=== PATIENT | female | born 1930 | race Caucasian/White ===

== ENCOUNTER 2018-03-03 19:12 | Inpatient (IN) | payer MEDICARE, MEDICAID ==
[~2018-03-03] VITALS: Ht 154.9 cm; Wt 72.6 kg
[2018-03-03] MEDS ORDERED: MAGN400O6 PO (22:00)
[2018-03-03] MEDS ORDERED: LORA-258 PO (22:00)
[2018-03-03] MEDS ORDERED: ZOLP5TAB8 PO (22:00)
[2018-03-03] MEDS ORDERED: ACET-2154 PO (22:00)
[2018-03-03] MEDS ORDERED: RALO60TA PO (22:00)
[2018-03-03] MEDS ORDERED: PRED1DRO LEFTEYE (22:00)
[2018-03-03] MEDS ORDERED: ASPI-612 PO (22:00)
[2018-03-03] MEDS ORDERED: GABA-532 PO (22:00)
[2018-03-03] MEDS ORDERED: CLON0.1T PO (22:00)
[2018-03-03] MEDS ORDERED: MAGN400C PO (22:00)
[2018-03-03] MEDS ORDERED: HYDR-3326 PO (22:00)
[2018-03-03] MEDS ORDERED: DOCU-141 PO (22:00)
[2018-03-03] MEDS ORDERED: CELE200C PO (22:00)
[2018-03-03] MEDS ORDERED: ATOR20TA PO (22:00)
[2018-03-03 22:09] VITALS: BP 145/69
[2018-03-03] MEDS ORDERED: BLOO-1672 MC (22:29)
[2018-03-03] MEDS ORDERED: INSU100V28 SUBCUT (22:33)
[2018-03-03] MEDS ORDERED: PRED5DRO16 LEFTEYE (22:36)
[2018-03-03] MEDS ORDERED: BISA10SU8 RC (22:40)
[2018-03-03] MEDS ORDERED: [UNRECOGNIZED DRUG - CODE] OP (22:45)
[2018-03-03] MEDS ORDERED: ZOLPIDEM 5 MG TABLET PO PRN (23:00)
[2018-03-03] MEDS ORDERED: DEXTROSE 50% 50 ML DISP.SYRIN IV PRN (23:00)
[2018-03-03] MEDS ORDERED: Z GUARD REMEDY PASTE 57 GM TUBE TOP PRN (23:00)
[2018-03-03] MEDS ORDERED: ONDANSETRON 4 MG/2 ML VIAL IV PRN (23:00)
[2018-03-03] MEDS ORDERED: MAGNESIUM HYDROXIDE 30 ML LIQUID UDC PO PRN (23:00)
--- NOTE | 2018-03-04 04:53 | NUR ---
received from [facility] an 87 year old female S/P right total knee arthroplasty. RLE with immobilizer on at all times with dressing clean dry and intact. aaox4 speaks Maltese, understand little bit Syriac. Fall precautions maintained. OOB to the BR with quad cane, ambulates with supervision. voiding without difficulty. skin intact. VSS. Hx of dementia, leukemia, hyperthyroidism, osteoarthritis.kept comfortable. fall precautions maintained.
[2018-03-04 05:47] VITALS: BP 156/59
[2018-03-04] MEDS: PANTOPRAZOLE SODIUM 40 MG TABLET.DR PO SCH (06:01)
[2018-03-04] MEDS: BLOOD SUGAR DIAGNOSTIC 1 EACH STRIP VI SCH ×4 (06:34→21:31)
--- NOTE | 2018-03-04 07:46 | NUR ---
SBAR report received, board updated. Pt received sleeping in bed. Bed in locked and lowest position with side rails up x2. No acute distress. Call light within reach. Will continue to monitor and follow up.
[2018-03-04] MEDS: MELOXICAM 7.5 MG TABLET PO SCH (08:25)
[2018-03-04] MEDS: HYDROCODONE/APAP 5-325MG TABLET PO PRN ×3 (08:26→21:12)
[2018-03-04] MEDS: INSULIN REGULAR, HUMAN 300 UNIT/3 ML VIAL SQ PRN ×4 (08:38→21:29)
--- NOTE | 2018-03-04 15:18 | NUR ---
Pt compliant with all routinely scheduled medication administration this morning. VSS. BS prior to lunch of 200 covered with 3 units. All safety and comfort measures implemented. Pt cooperative with therapy evaluations. Call light and personal belongings placed within reach. Will continue to monitor.
[2018-03-04] MEDS ORDERED: ONDANSETRON HCL 4 MG TABLET PO PRN (18:00)
--- NOTE | 2018-03-04 18:42 | NUR ---
Pt assisted to bathroom for voiding, clear and yellow urine. Pt able to ambulate with walker back to bed. VSS. Pt repositioned for comfort. Orders confirmed to have immobilizer remain in place at all times except when exercising, showering, and using CPM. Surgeon specified to have original dressing remain and only to be reinforced PRN. F/U appointment scheduled for 03/11 at 1500 and Xray 03/10 to check for progressive healing. All safety and comfort needs met. Ice pack in place. Call light and personal items placed within reach. Will continue to monitor and endorse to on coming cannon fire direction specialist.
[2018-03-04 20:00] VITALS: BP 144/47
[2018-03-04] MEDS ORDERED: LORAZEPAM 0.5 MG TABLET PO PRN (20:00)
[2018-03-04] MEDS ORDERED: HYDROCODONE/APAP 5-325MG TABLET PO PRN (20:00)
[2018-03-04] MEDS ORDERED: BISACODYL 10 MG SUPP.RECT RC PRN (20:00)
--- NOTE | 2018-03-04 20:05 | NUR ---
Patient received in bed. AAO X4. Able to make needs known. No sign of acute distress or SOB was noted. On room air with O2 sat 92%. Patient ambulated with assist and using walker to the bathroom. And after that transferred to her bed. Knee immobilizer and ice bag in place. All safety measures maintained. Bed is on low position, brake and alarm are on. Call light and personal belongings within reach. Continue to monitor.
[2018-03-04] MEDS ORDERED: prednisoLONE ACET 1% OPHT DROP 5 ML BOTTLE LEFTEYE SCH (21:00)
[2018-03-04] MEDS: DOCUSATE SODIUM 100 MG CAPSULE PO SCH (21:11)
[2018-03-04] MEDS: MAGNESIUM OXIDE 400 MG TABLET PO SCH (22:11)
[2018-03-04] MEDS: ATORVASTATIN 20 MG TABLET PO SCH (22:11)
[2018-03-04] MEDS ORDERED: VALSARTAN 160 MG TABLET PO ONE (22:15)
--- NOTE | 2018-03-04 22:50 | NUR ---
Dr. Dorsey ordered Diovan 160 mg Stat. The order was entered on the computer. Pharmacy contacted. The medication was given as ordered. Continue to monitor.
[2018-03-05] MEDS: HYDROCODONE/APAP 5-325MG TABLET PO PRN ×5 (01:22→22:42)
--- NOTE | 2018-03-05 05:15 | NUR ---
End of shift note, Patient remained stable throughout the shift. No acute distress or SOB was noted. Pain assessed and reassessed after pain medication. All medication given as ordered. BS was checked at 2100 was 140, 2 units insulin given per sliding scale. All needs attended promptly. Safety measures maintained. Keep her clean and comfortable. Bed in low position, alarm and brake on. Call light and personal belongings within reach. Continue to monitor and will endorse to day shift nurse.
[2018-03-05] MEDS: PANTOPRAZOLE SODIUM 40 MG TABLET.DR PO SCH (06:36)
[2018-03-05] MEDS: BLOOD SUGAR DIAGNOSTIC 1 EACH STRIP VI SCH ×4 (06:39→20:52)
[2018-03-05 07:06] LABS: BASOPHILS % (AUTO) 0.5 % (0.0-2.0); EOSINOPHILS # (AUTO) 0.3 K/uL (0.0-0.7); EOSINOPHILS % (AUTO) 4.2 % (0.0-7.0); HEMATOCRIT 27.6 % (31.2-41.9); HEMOGLOBIN 9.6 g/dL (10.9-14.3); LYMPHOCYTES # (AUTO) 1.1 K/uL (20.0-40.0); LYMPHOCYTES % (AUTO) 14.2 % (20.5-51.5); MEAN CORPUSCULAR HGB CONC 35 g/dL (32.3-35.6); MEAN CORPUSCULAR VOLUME 92.1 fL (75.5-95.3); MONOCYTES # (AUTO) 0.7 K/uL (2.0-10.0); MONOCYTES % (AUTO) 9.6 % (0.0-11.0); NEUTROPHILS # (AUTO) 5.6 K/uL (1.8-8.9); NEUTROPHILS % (AUTO) 71.5 % (38.5-71.5); PLATELET COUNT (AUTO) 241 K/uL (179-408); WHITE BLOOD COUNT (AUTO) 7.8 K/uL (3.8-11.8)
[2018-03-05 07:36] VITALS: BP 149/56
[2018-03-05 07:39] LABS: IRON, SERUM 13 ug/dL (50-175)
--- NOTE | 2018-03-05 07:50 | NUR ---
Received patient, asleep. Non-labored breathing. Not in apparent distress. Dressing intact, from original dressing. According to PM RN dressing not be changed since orthopedic surgeon prefers dressing to be changed by him. Will continue to monitor.
[2018-03-05 07:58] LABS: ALANINE AMINOTRANSFERASE 29 U/L (14-59); ALKALINE PHOSPHATASE 63 U/L (50-136); ASPARTATE AMINOTRANSFERASE 31 U/L (15-37); BILIRUBIN,TOTAL 0.6 mg/dL (0.2-1.0); CARBON DIOXIDE 29 mmol/L (21-32); CHLORIDE 99 mmol/L (98-107); CHOLESTEROL 97 mg/dL (<200); CREATININE 0.9 mg/dL (0.6-1.3); GLUCOSE 124 mg/dL (74-106); HDL CHOLESTEROL 37 mg/dL (40-60); PHOSPHOROUS 3.1 mg/dL (2.5-4.9); POTASSIUM 4.5 mmol/L (3.5-5.1); TOTAL PROTEIN, SERUM 5.5 g/dL (6.4-8.2); TRIGLYCERIDES 87 MG/DL (30-150); UREA NITROGEN, BLOOD 29 mg/dL (7-18)
[2018-03-05 08:00] VITALS: BP 146/69
[2018-03-05] MEDS: VALSARTAN 80 MG TABLET PO SCH ×2 (08:46→20:54)
[2018-03-05] MEDS: GABAPENTIN 100 MG CAPSULE PO SCH (08:47)
[2018-03-05] MEDS: ASPIRIN EC 325 MG TABLET.DR PO SCH (08:47)
[2018-03-05] MEDS: MELOXICAM 7.5 MG TABLET PO SCH (08:47)
[2018-03-05 08:58] LABS: THYROID STIMULATING HORMONE 3.934 mIU/mL (0.358-3.740)
[2018-03-05] MEDS ORDERED: RALOXIFENE HCL 60 MG PO SCH (09:00)
[2018-03-05] MEDS ORDERED: VALSARTAN 160 MG TABLET PO SCH (09:00)
[2018-03-05] MEDS: prednisoLONE ACET 1% OPHT DROP 5 ML BOTTLE LEFTEYE SCH (09:51)
[2018-03-05] MEDS: INSULIN REGULAR, HUMAN 300 UNIT/3 ML VIAL SQ PRN ×3 (12:07→20:59)
--- NOTE | 2018-03-05 13:00 | NUR ---
Seen and examined by Dr. Nava. Seen rashes on lower leg. Ordered hydrocortisone 1% cream TID
[2018-03-05] MEDS: HYDROCORTISONE 1% CREAM 30 GM TUBE TP SCH (16:54)
[2018-03-05 16:59] VITALS: BP 139/59
[2018-03-05 20:00] VITALS: BP 133/74
[2018-03-05] MEDS: MAGNESIUM OXIDE 400 MG TABLET PO SCH (20:54)
[2018-03-05] MEDS: DOCUSATE SODIUM 100 MG CAPSULE PO SCH (20:54)
[2018-03-05] MEDS: ATORVASTATIN 20 MG TABLET PO SCH (20:54)
--- NOTE | 2018-03-05 23:00 | NUR ---
Received pt at the beginning of shift resting in bed. Family at bedside. Norwegian speaking, able to make needs known. Assisted to the bathroom using walker with assist. No acute distress noted. C/o pain on the right knee, requested Varina, med given as ordered. Safety measures maintained. Bed alarm on. Call light and personal belongings within reach. Will continue to monitor.
[2018-03-06 06:00] VITALS: BP 154/84
[2018-03-06] MEDS: PANTOPRAZOLE SODIUM 40 MG TABLET.DR PO SCH (06:15)
[2018-03-06] MEDS: HYDROCODONE/APAP 5-325MG TABLET PO PRN ×4 (06:26→20:35)
[2018-03-06] MEDS: CLONIDINE HCL 0.1 MG TABLET PO PRN (06:26)
[2018-03-06] MEDS: BLOOD SUGAR DIAGNOSTIC 1 EACH STRIP VI SCH ×4 (06:33→20:22)
--- NOTE | 2018-03-06 06:43 | NUR ---
Skin assessment: no redness on sacrum area upon thorough assessment this morning. Pt turns and repositions independently and encouraged to do so. Will continue to monitor.
[2018-03-06] MEDS: ASPIRIN EC 325 MG TABLET.DR PO SCH (08:43)
[2018-03-06] MEDS: MELOXICAM 7.5 MG TABLET PO SCH (08:43)
[2018-03-06] MEDS: GABAPENTIN 100 MG CAPSULE PO SCH (08:43)
[2018-03-06] MEDS: VALSARTAN 80 MG TABLET PO SCH ×2 (08:44→20:23)
[2018-03-06] MEDS: prednisoLONE ACET 1% OPHT DROP 5 ML BOTTLE LEFTEYE SCH (08:45)
[2018-03-06] MEDS: HYDROCORTISONE 1% CREAM 30 GM TUBE TP SCH ×3 (08:45→16:24)
--- NOTE | 2018-03-06 09:59 | NUR ---
Received patient in lying in bed. Continue on pain management with good effect. Continue applying ice pack for right knee pain. Continue on CMP PRN. SPO2 between 89-92. MD Nava notified. Applied oxygen at 2 LPM via nasal cannula. SPO2- 96% with oxygen. will continue monitor
[2018-03-06] MEDS: INSULIN REGULAR, HUMAN 300 UNIT/3 ML VIAL SQ PRN ×2 (12:01→20:30)
--- NOTE | 2018-03-06 13:18 | NUR ---
INTERDISCIPLINARY TEAM CONFERENCE
--- NOTE | 2018-03-06 18:34 | NUR ---
Patient continue PRN oxygen for low SPO2. latest 94% in room air. Continue on CPM and therapy for ambulation and unsteady gait. will continue monitor
--- NOTE | 2018-03-06 18:37 | NUR ---
Patient continue pain management prior to therapy with good effect. not in distress. Continue CPM therapy for wound healing and ambulation. will continue monitor
--- NOTE | 2018-03-06 19:55 | NUR ---
Received pt in bed, AAO x 4 appearing to be asleep but easily arousable to verbal stimuli and light touch. No acute distress noted. Verbally responsive and able to make needs known. Denies pain or discomfort at this time. All safety measures and fall precautions maintained. Call light and all personal belongings within reach. Will continue to monitor.
[2018-03-06 20:02] VITALS: BP 106/62
[2018-03-06] MEDS: MAGNESIUM OXIDE 400 MG TABLET PO SCH (20:22)
[2018-03-06] MEDS: ATORVASTATIN 20 MG TABLET PO SCH (20:23)
[2018-03-06] MEDS: DOCUSATE SODIUM 100 MG CAPSULE PO SCH (20:23)
[2018-03-07] MEDS: HYDROCODONE/APAP 5-325MG TABLET PO PRN ×4 (00:48→18:35)
[2018-03-07 05:04] VITALS: BP 131/63
[2018-03-07] MEDS: PANTOPRAZOLE SODIUM 40 MG TABLET.DR PO SCH (06:24)
[2018-03-07] MEDS: BLOOD SUGAR DIAGNOSTIC 1 EACH STRIP VI SCH ×4 (06:30→20:25)
[2018-03-07] MEDS: prednisoLONE ACET 1% OPHT DROP 5 ML BOTTLE LEFTEYE SCH (08:55)
[2018-03-07] MEDS: GABAPENTIN 100 MG CAPSULE PO SCH (08:55)
[2018-03-07] MEDS: VALSARTAN 80 MG TABLET PO SCH ×2 (08:56→20:24)
[2018-03-07] MEDS: ASPIRIN EC 325 MG TABLET.DR PO SCH (08:56)
[2018-03-07] MEDS: MELOXICAM 7.5 MG TABLET PO SCH (08:56)
[2018-03-07] MEDS: HYDROCORTISONE 1% CREAM 30 GM TUBE TP SCH ×3 (08:56→16:38)
--- NOTE | 2018-03-07 11:44 | NUR ---
CALLED HER SON REGARDING BRINGING IN THE EVISTA PER REQUEST OF PHARMACIST COOPER. HE SAYS HE WILL NOT BE BRINGING THE MEDICATION IN HIS MOM TOLD HIM SHE DOES NOT NEED IT AND WILL TAKE IT ONCE SHE COMES HOME
[2018-03-07] MEDS: INSULIN REGULAR, HUMAN 300 UNIT/3 ML VIAL SQ PRN ×2 (13:02→20:30)
--- NOTE | 2018-03-07 19:44 | NUR ---
Received pt in bed, AAO x 4. Knee immobilizer applied. No acute distress noted. Denies pain or discomfort at this time. All safety measures and fall precautions maintained. Call light and all personal belongings within reach. Addendum: 03/07/18 at 1946 by Jose Barkley RN Will continue to monitor.
[2018-03-07 19:59] VITALS: BP 131/64
[2018-03-07] MEDS: ATORVASTATIN 20 MG TABLET PO SCH (20:24)
[2018-03-07] MEDS: DOCUSATE SODIUM 100 MG CAPSULE PO SCH (20:24)
[2018-03-07] MEDS: MAGNESIUM OXIDE 400 MG TABLET PO SCH (20:24)
[2018-03-08] MEDS: HYDROCODONE/APAP 5-325MG TABLET PO PRN ×5 (01:58→21:17)
[2018-03-08 05:22] VITALS: BP 155/60
[2018-03-08] MEDS: PANTOPRAZOLE SODIUM 40 MG TABLET.DR PO SCH (06:21)
[2018-03-08] MEDS: BLOOD SUGAR DIAGNOSTIC 1 EACH STRIP VI SCH ×4 (06:32→21:23)
[2018-03-08 08:00] VITALS: BP 148/70
[2018-03-08] MEDS: MELOXICAM 7.5 MG TABLET PO SCH (08:04)
[2018-03-08] MEDS: GABAPENTIN 100 MG CAPSULE PO SCH (08:04)
[2018-03-08] MEDS: VALSARTAN 80 MG TABLET PO SCH ×2 (08:04→21:17)
[2018-03-08] MEDS: prednisoLONE ACET 1% OPHT DROP 5 ML BOTTLE LEFTEYE SCH (08:05)
[2018-03-08] MEDS: ASPIRIN EC 325 MG TABLET.DR PO SCH (08:05)
[2018-03-08] MEDS: HYDROCORTISONE 1% CREAM 30 GM TUBE TP SCH ×3 (08:05→17:01)
[2018-03-08] MEDS: INSULIN REGULAR, HUMAN 300 UNIT/3 ML VIAL SQ PRN ×3 (08:17→21:19)
[2018-03-08] MEDS: ACETAMINOPHEN 325 MG TABLET PO PRN (11:14)
--- NOTE | 2018-03-08 13:18 | NUR ---
INTERDISCIPLINARY TEAM CONFERENCE
--- NOTE | 2018-03-08 14:42 | NUR ---
SBAR report received this morning, board updated. Pt assessed reports pain managed through PRN medication following ambulation with walker to restroom, in addition to application of ice pack. Pt reports frequent diarrhea since yesterday evening, refusing breakfast. Pt insists on postponing PT until later this afternoon anticipating feeling better with more energy. Call light and personal belongings placed within reach. Will continue to monitor.
[2018-03-08 16:00] VITALS: BP 137/56
[2018-03-08 20:00] VITALS: BP 152/74
--- NOTE | 2018-03-08 20:20 | NUR ---
Patient received in bed. AAO X4. Able to make needs known. No sign of acute distress or SOB was noted. On room air with O2 sat 94%. Patient ambulated with assist and using walker to the bathroom. And after that transferred to her bed. Knee immobilizer and ice bag in place. All safety measures maintained. Bed is on low position, brake and alarm are on. Call light and personal belongings within reach. Continue to monitor.
[2018-03-08] MEDS: DOCUSATE SODIUM 100 MG CAPSULE PO SCH (21:00)
[2018-03-08] MEDS: MAGNESIUM OXIDE 400 MG TABLET PO SCH (21:18)
[2018-03-08] MEDS: ATORVASTATIN 20 MG TABLET PO SCH (21:18)
[2018-03-09] MEDS: HYDROCODONE/APAP 5-325MG TABLET PO PRN ×4 (01:16→18:54)
[2018-03-09] MEDS: PANTOPRAZOLE SODIUM 40 MG TABLET.DR PO SCH (06:20)
--- NOTE | 2018-03-09 06:34 | NUR ---
End of shift note, Patient remained stable throughout the shift. No acute distress or SOB was noted. Pain assessed and reassessed after pain medication. All medication given as ordered. BS was checked at 2100 was 132, 2 units insulin given per sliding scale, at the morning was 117. All needs attended promptly. Safety measures maintained. Keep her clean and comfortable. Bed in low position, alarm and brake on. Call light and personal belongings within reach. Continue to monitor and will endorse to day shift nurse.
[2018-03-09] MEDS: BLOOD SUGAR DIAGNOSTIC 1 EACH STRIP VI SCH ×4 (06:37→21:08)
[2018-03-09 06:43] VITALS: BP 151/79
[2018-03-09 08:00] VITALS: BP 164/69
[2018-03-09] MEDS: prednisoLONE ACET 1% OPHT DROP 5 ML BOTTLE LEFTEYE SCH (08:31)
[2018-03-09] MEDS: MELOXICAM 7.5 MG TABLET PO SCH (08:32)
[2018-03-09] MEDS: ASPIRIN EC 325 MG TABLET.DR PO SCH (08:32)
[2018-03-09] MEDS: GABAPENTIN 100 MG CAPSULE PO SCH (08:33)
[2018-03-09] MEDS: HYDROCORTISONE 1% CREAM 30 GM TUBE TP SCH ×3 (08:33→16:36)
[2018-03-09] MEDS: ACETAMINOPHEN 325 MG TABLET PO PRN ×2 (08:33→14:54)
[2018-03-09] MEDS: VALSARTAN 80 MG TABLET PO SCH ×2 (08:33→20:25)
--- NOTE | 2018-03-09 09:12 | NUR ---
Received report from previous shift. Pt. in bed lying comfortable. A/OX4 with capacity to make decision and able to make her needs known. Pt. mostly Swazi speaking but do understand Macedonian. RT. knee immobilizer in place, good circulation in RLE with no skin breakdown noted. Pt. denies chest pain or SOB. No s/sx of hypo/hyperglycemia. Encouraged pt. use of CPM as tolerated. Kept pt. clean at all times. All safety and fall precaution in placed. Call light and all frequently used items within pt. reach. Will continue to monitor accordingly.
[2018-03-09] MEDS: INSULIN REGULAR, HUMAN 300 UNIT/3 ML VIAL SQ PRN ×2 (11:19→21:13)
[2018-03-09 16:06] VITALS: BP 148/56
--- NOTE | 2018-03-09 19:04 | NUR ---
End of shift noted: No significant changed during this shift. No changes in mention A/Ox4 able to make her needs known. Pt. remained stable, denies chest pain or SOB. Rt. knee immobilizer in placed, no skin breakdown noted. All due medications given and tolerated well. C/O pain on RT. knee, prn medication givens and effective. Kept pt. clean at all times. No s/s of hypo/hyperglycemia. BS @ 0430: 100. All pt. needs attended and met. All safety and fall precaution in placed. Call light and all frequently used items in reach. Will endorse to on coming shift accordingly.
[2018-03-09 20:00] VITALS: BP 160/68
[2018-03-09] MEDS: ATORVASTATIN 20 MG TABLET PO SCH (20:25)
[2018-03-09] MEDS: DOCUSATE SODIUM 100 MG CAPSULE PO SCH (20:25)
[2018-03-09] MEDS: MAGNESIUM OXIDE 400 MG TABLET PO SCH (20:25)
[2018-03-09] MEDS ORDERED: INSULIN REGULAR, HUMAN 300 UNIT/3 ML VIAL ONE (20:46)
--- NOTE | 2018-03-09 22:54 | NUR ---
Received pt resting in bed. AAO x3, Iranian speaking, able to make needs known. No acute distress noted. No c/o pain or discomfort. Pt tried to get out of bed without calling for help to go to the bathroom. Reoriented to the unit and provided teachings regarding safety. Encouraged use of call light. Meds and insulin coverage given. Safety measures maintained. Bed alarm on. Call light and personal belongings within reach. Will continue to monitor.
[2018-03-10] MEDS: HYDROCODONE/APAP 5-325MG TABLET PO PRN ×5 (00:40→22:58)
[2018-03-10] MEDS: ACETAMINOPHEN 325 MG TABLET PO PRN (04:07)
[2018-03-10 05:00] VITALS: BP 163/66
[2018-03-10] MEDS: PANTOPRAZOLE SODIUM 40 MG TABLET.DR PO SCH (06:08)
[2018-03-10] MEDS: CLONIDINE HCL 0.1 MG TABLET PO PRN (06:19)
[2018-03-10] MEDS: BLOOD SUGAR DIAGNOSTIC 1 EACH STRIP VI SCH ×4 (06:36→20:16)
--- NOTE | 2018-03-10 06:44 | NUR ---
Catapres PRN given. BP elevated 163/66. No acute distress noted. No c/o dizziness. Will continue to monitor.
[2018-03-10] MEDS: ASPIRIN EC 325 MG TABLET.DR PO SCH (07:52)
[2018-03-10] MEDS: MELOXICAM 7.5 MG TABLET PO SCH (07:52)
[2018-03-10] MEDS: prednisoLONE ACET 1% OPHT DROP 5 ML BOTTLE LEFTEYE SCH (07:53)
[2018-03-10] MEDS: GABAPENTIN 100 MG CAPSULE PO SCH (07:53)
[2018-03-10 08:00] VITALS: BP 147/50
[2018-03-10] MEDS: VALSARTAN 80 MG TABLET PO SCH ×2 (08:00→20:16)
[2018-03-10] MEDS: HYDROCORTISONE 1% CREAM 30 GM TUBE TP SCH ×3 (08:06→16:15)
[2018-03-10] MEDS: INSULIN REGULAR, HUMAN 300 UNIT/3 ML VIAL SQ PRN ×2 (11:57→20:21)
[2018-03-10 16:00] VITALS: BP 162/61
--- NOTE | 2018-03-10 17:15 | NUR ---
Daily Nursing Note: No significant changed during this shift. No changes in mention A/Ox4 able to make her needs known. Pt. remained stable, denies chest pain or SOB. Rt. knee immobilizer in placed, no skin breakdown noted. All due medications given and tolerated well. C/O pain on RT. knee, prn medication givens and effective., compliant with her plan of care. Kept pt. clean at all times. No s/s of hypo/hyperglycemia. BS @1630:102. All pt. needs attended and met. All safety and fall precaution in placed. Call light and all frequently used items in reach.
[2018-03-10 18:00] VITALS: BP 126/80
[2018-03-10 19:30] VITALS: BP 135/60
--- NOTE | 2018-03-10 19:36 | NUR ---
Received pt resting in bed. AAO x4, Ghanaian speaking, able to make needs known. No acute distress noted. No c/o pain or discomfort at this time. Knee immobilizer on the right in placed. Pt has appointment tomorrow with Dr. Laird, pt aware. Safety measures maintained. Bed alarm on. Call light and personal belongings within reach. Will continue to monitor.
[2018-03-10] MEDS: ATORVASTATIN 20 MG TABLET PO SCH (20:16)
[2018-03-10] MEDS: DOCUSATE SODIUM 100 MG CAPSULE PO SCH (20:16)
[2018-03-10] MEDS: MAGNESIUM OXIDE 400 MG TABLET PO SCH (20:16)
[2018-03-11] VITALS (7 sets, daily range): BP systolic 135–184; BP diastolic 46–83
[2018-03-11] MEDS: CLONIDINE HCL 0.1 MG TABLET PO PRN ×2 (00:45→08:10)
[2018-03-11] MEDS: ACETAMINOPHEN 325 MG TABLET PO PRN ×2 (02:21→07:59)
--- NOTE | 2018-03-11 02:26 | NUR ---
At 0040, pt c/o dizziness. BP 184/83, HR 112. Catapres PRN given. At 0125, BP 165/ 73, HR 90. Zofran PRN given for nausea. At 0220, BP 139/ 61, HR 84. No N/V. Pt stated that she feels better. Will continue to monitor.
[2018-03-11] MEDS: PANTOPRAZOLE SODIUM 40 MG TABLET.DR PO SCH (06:28)
[2018-03-11] MEDS: BLOOD SUGAR DIAGNOSTIC 1 EACH STRIP VI SCH ×4 (06:37→21:29)
[2018-03-11] MEDS: ASPIRIN EC 325 MG TABLET.DR PO SCH (08:09)
[2018-03-11] MEDS: GABAPENTIN 100 MG CAPSULE PO SCH (08:10)
[2018-03-11] MEDS: MELOXICAM 7.5 MG TABLET PO SCH (08:10)
[2018-03-11] MEDS: prednisoLONE ACET 1% OPHT DROP 5 ML BOTTLE LEFTEYE SCH (08:10)
[2018-03-11] MEDS: HYDROCORTISONE 1% CREAM 30 GM TUBE TP SCH ×3 (08:16→16:50)
[2018-03-11] MEDS: INSULIN REGULAR, HUMAN 300 UNIT/3 ML VIAL SQ PRN ×2 (08:16→21:31)
[2018-03-11 08:22] LABS: BASOPHILS # (AUTO) 0.1 K/uL (0.0-8.0); EOSINOPHILS # (AUTO) 0.4 K/uL (0.0-0.7); HEMOGLOBIN 9.6 g/dL (10.9-14.3); LYMPHOCYTES # (AUTO) 1.2 K/uL (20.0-40.0); LYMPHOCYTES % (AUTO) 10.4 % (20.5-51.5); MONOCYTES # (AUTO) 0.8 K/uL (2.0-10.0)
[2018-03-11 08:33] LABS: ALANINE AMINOTRANSFERASE 32 U/L (14-59); ALKALINE PHOSPHATASE 73 U/L (50-136); ASPARTATE AMINOTRANSFERASE 35 U/L (15-37); BILIRUBIN,TOTAL 0.7 mg/dL (0.2-1.0); CARBON DIOXIDE 26 mmol/L (21-32); CHLORIDE 99 mmol/L (98-107); CREATININE 0.8 mg/dL (0.6-1.3); GLUCOSE 139 mg/dL (74-106); MAGNESIUM 1.6 mg/dL (1.8-2.4); PHOSPHOROUS 4.3 mg/dL (2.5-4.9); POTASSIUM 4.3 mmol/L (3.5-5.1); TOTAL PROTEIN, SERUM 6.2 g/dL (6.4-8.2); UREA NITROGEN, BLOOD 17 mg/dL (7-18)
[2018-03-11 08:37] LABS: BASOPHILS % (AUTO) 0.6 % (0.0-2.0); EOSINOPHILS % (AUTO) 3.9 % (0.0-7.0); HEMATOCRIT 28.5 % (31.2-41.9); MEAN CORPUSCULAR HEMOGLOBIN 30.9 uug (24.7-32.8); MEAN CORPUSCULAR HGB CONC 34 g/dL (32.3-35.6); MEAN CORPUSCULAR VOLUME 91.6 fL (75.5-95.3); MONOCYTES % (AUTO) 6.8 % (0.0-11.0); NEUTROPHILS # (AUTO) 8.9 K/uL (1.8-8.9); NEUTROPHILS % (AUTO) 78.3 % (38.5-71.5); RED BLOOD CELL COUNT(AUTO) 3.11 MIL/uL (3.63-4.92)
[2018-03-11 08:39] LABS: PLATELET COUNT (AUTO) 489 K/uL (179-408); WHITE BLOOD COUNT (AUTO) 11.4 K/uL (3.8-11.8)
[2018-03-11] MEDS: HYDROCODONE/APAP 5-325MG TABLET PO PRN ×3 (08:49→21:21)
[2018-03-11] MEDS: VALSARTAN 80 MG TABLET PO SCH ×2 (08:52→21:22)
[2018-03-11] MEDS ORDERED: MAGNESIUM OXIDE 400 MG TABLET PO ONE (12:00)
--- NOTE | 2018-03-11 13:55 | NUR ---
SBAR report received, board updated. Pt assessed. No acute distress or N/V. Tylenol administered for headache this morning. VSS BP of 154/65, 81, Catapres PRN given. Pt reassessed for routine BP medications BP of 107/42, 88 scheduled BP med held. Plan for today discussed, including follow up appointment with surgeon @ 1500, and transportation expected at 1400 by ambulance. Pt medicated with PRN pain medication as ordered prior to therapy and transportation. Bed in locked and lowest position with side rails up x2. Pt cooperative with therapies as scheduled. Pt compliant with medication administration. Call light and personal items within reach. All comfort needs met. Will continue to monitor for safety.
--- NOTE | 2018-03-11 18:21 | NUR ---
Pt returned safely from f/u appointment. New orders received: right knee original surgical dressing removed, no s/s of infection, erythema, or drainage, knee immobilizer replaced. Tx plan is to return to clinic in 2 weeks (03/25/18 @ 10am) no Xray required. Continue daily ROM, PT, stretching with concentration on right knee extension, icing 2-3x's daily15 min durations. No restrictions to shower. Continue pain control and ASA 325 BID. Pt denies pain at this time. Call light within reach. Pt currently resting calmly. All comfort and safety needs attended to. Will continue to monitor and endorse to oncoming manager night.
[2018-03-11] MEDS: MAGNESIUM OXIDE 400 MG TABLET PO SCH (21:20)
[2018-03-11] MEDS: DOCUSATE SODIUM 100 MG CAPSULE PO SCH (21:20)
[2018-03-11] MEDS: ATORVASTATIN 20 MG TABLET PO SCH (21:21)
[2018-03-12] MEDS: HYDROCODONE/APAP 5-325MG TABLET PO PRN ×4 (02:43→16:55)
--- NOTE | 2018-03-12 02:46 | NUR ---
Patient complained of Right knee pain. Narco 5-325 mg tab administered as PRN ordered. Continue to monitor.
--- NOTE | 2018-03-12 05:35 | NUR ---
End of shift note, Patient remained stable throughout the shift. No acute distress or SOB was noted. Pain assessed and reassessed after pain medication. All medication given as ordered. BS was checked at 2100 was 208, 4 units insulin given per sliding scale. All needs attended promptly. Safety measures maintained. Keep her clean and comfortable. Bed in low position, alarm and brake on. Call light and personal belongings within reach. Continue to monitor and will endorse to day shift nurse.
[2018-03-12] MEDS: PANTOPRAZOLE SODIUM 40 MG TABLET.DR PO SCH (06:43)
[2018-03-12] MEDS: BLOOD SUGAR DIAGNOSTIC 1 EACH STRIP VI SCH ×4 (06:46→20:59)
[2018-03-12] MEDS: CLONIDINE HCL 0.1 MG TABLET PO PRN (07:03)
[2018-03-12 07:07] VITALS: BP 166/60
--- NOTE | 2018-03-12 07:12 | NUR ---
Patient has a high BP: 166/60, Clonidine 0.1 mg tab administered as PRN ordered. Continue to monitor and will endorse to the day shift nurse.
[2018-03-12 07:55] VITALS: BP 156/53
[2018-03-12] MEDS: ASPIRIN EC 325 MG TABLET.DR PO SCH (08:11)
[2018-03-12] MEDS: MELOXICAM 7.5 MG TABLET PO SCH (08:11)
[2018-03-12] MEDS: prednisoLONE ACET 1% OPHT DROP 5 ML BOTTLE LEFTEYE SCH (08:11)
[2018-03-12] MEDS: GABAPENTIN 100 MG CAPSULE PO SCH (08:12)
[2018-03-12] MEDS: VALSARTAN 80 MG TABLET PO SCH ×2 (08:12→20:56)
[2018-03-12] MEDS: HYDROCORTISONE 1% CREAM 30 GM TUBE TP SCH ×3 (08:14→16:51)
--- NOTE | 2018-03-12 10:48 | NUR ---
SBAR report received, board updated. VS 156/53, 82, routine morning medications administered as ordered. Pt able to make needs known. Pt compliant with nursing care, and agrees to cooperate with therapies as scheduled. Plan of care for today discussed, including anticipated discharge later this afternoon around 1500. Bed in locked and lowest position with side rails up x2. All comfort and safety needs met at this time. Call light and personal belongings in place within reach. Will continue to monitor.
[2018-03-12] MEDS: ACETAMINOPHEN 325 MG TABLET PO PRN (13:07)
[2018-03-12 16:10] VITALS: BP 149/49
[2018-03-12] MEDS: INSULIN REGULAR, HUMAN 300 UNIT/3 ML VIAL SQ PRN (16:57)
[2018-03-12 17:12] VITALS: BP 110/62
--- NOTE | 2018-03-12 18:20 | NUR ---
Pt VSS, BP 110/62, hr 91, while sitting up in bed for dinner. BS 156 covered with 2 units per sliding scale orders. Pt reports relief from pain medication and application of ice pack. Family visiting at bedside currently. All comfort and safety needs attended to. Call light within reach. Will continue to monitor and endorse to oncoming night custodian.
--- NOTE | 2018-03-12 19:20 | NUR ---
Sleeping during bedside reporting. No s/s of respiratory distress noted. Safety measure and fall precaution maintained. Continue care as planned.
[2018-03-12 19:48] VITALS: BP 131/76
[2018-03-12] MEDS: DOCUSATE SODIUM 100 MG CAPSULE PO SCH (20:56)
[2018-03-12] MEDS: MAGNESIUM OXIDE 400 MG TABLET PO SCH (20:56)
[2018-03-12] MEDS: ATORVASTATIN 20 MG TABLET PO SCH (20:56)
--- NOTE | 2018-03-12 21:39 | NUR ---
HS snack provided.
[2018-03-13] MEDS: PANTOPRAZOLE SODIUM 40 MG TABLET.DR PO SCH (06:29)
[2018-03-13] MEDS: BLOOD SUGAR DIAGNOSTIC 1 EACH STRIP VI SCH ×4 (06:29→20:39)
[2018-03-13] MEDS: CLONIDINE HCL 0.1 MG TABLET PO PRN (06:46)
[2018-03-13] MEDS: ACETAMINOPHEN 325 MG TABLET PO PRN ×3 (06:54→23:40)
[2018-03-13 06:55] VITALS: BP 173/65
--- NOTE | 2018-03-13 08:00 | NUR ---
Received patient awake, alert x4. With pain over right knee and head ache, refused pain medications at this time. Knee immobilizer inplace. Not in any form of distress.
[2018-03-13] MEDS: INSULIN REGULAR, HUMAN 300 UNIT/3 ML VIAL SQ PRN ×3 (08:09→17:03)
[2018-03-13 08:10] VITALS: BP 154/68
[2018-03-13] MEDS: prednisoLONE ACET 1% OPHT DROP 5 ML BOTTLE LEFTEYE SCH (08:22)
[2018-03-13] MEDS: VALSARTAN 80 MG TABLET PO SCH ×2 (08:22→20:35)
[2018-03-13] MEDS: MELOXICAM 7.5 MG TABLET PO SCH (08:22)
[2018-03-13] MEDS: HYDROCORTISONE 1% CREAM 30 GM TUBE TP SCH ×3 (08:23→17:04)
[2018-03-13] MEDS: ASPIRIN EC 325 MG TABLET.DR PO SCH (08:23)
[2018-03-13] MEDS: GABAPENTIN 100 MG CAPSULE PO SCH (08:23)
[2018-03-13] MEDS: HYDROCODONE/APAP 5-325MG TABLET PO PRN ×3 (09:33→20:50)
--- NOTE | 2018-03-13 09:36 | NUR ---
Patient complained of head ache rated as 5/10 and right knee rated as 8/10. PRN Hinkle given. Patient refused therapy at the moment and requested if she can have it an hour later
[2018-03-13] MEDS: METOPROLOL TARTRATE 25 MG TABLET PO SCH ×2 (10:28→20:35)
--- NOTE | 2018-03-13 13:38 | NUR ---
On knee immobilizer. Asked patient if we can check skin around it, especially surgical site. 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 PRN Tylenol given.
[2018-03-13 15:42] VITALS: BP 146/62
[2018-03-13 16:00] VITALS: BP_SYST 130; BP_SYST 154; BP_SYST 155; BP_DIAS 59; BP_DIAS 64; BP_DIAS 73
[2018-03-13 19:55] VITALS: BP 159/70
[2018-03-13] MEDS: ATORVASTATIN 20 MG TABLET PO SCH (20:34)
[2018-03-13] MEDS: DOCUSATE SODIUM 100 MG CAPSULE PO SCH (20:34)
[2018-03-13] MEDS: MAGNESIUM OXIDE 400 MG TABLET PO SCH (20:35)
--- NOTE | 2018-03-14 05:19 | NUR ---
slept well most of the shift. aaox4 ambulates to the BR with walker. needs attended. voiding well. pain meds given as noted. needs attended. possible discharge today.
--- NOTE | 2018-03-14 05:21 | NUR ---
right knee dressing clean dry and intact. knee immobilizer off
[2018-03-14] MEDS: CLONIDINE HCL 0.1 MG TABLET PO PRN ×2 (06:01→12:24)
[2018-03-14] MEDS: BLOOD SUGAR DIAGNOSTIC 1 EACH STRIP VI SCH ×2 (06:01→11:15)
[2018-03-14] MEDS: PANTOPRAZOLE SODIUM 40 MG TABLET.DR PO SCH (06:01)
[2018-03-14 06:07] VITALS: BP 165/62
--- NOTE | 2018-03-14 06:11 | NUR ---
BP 165/62 HR 80 Resp 18 Temp 98.1 Clonidine 0.1 mg po given for BP 165/62.
[2018-03-14] MEDS: VALSARTAN 80 MG TABLET PO SCH ×2 (08:56→09:12)
[2018-03-14] MEDS: METOPROLOL TARTRATE 25 MG TABLET PO SCH ×2 (09:00→09:13)
[2018-03-14] MEDS: prednisoLONE ACET 1% OPHT DROP 5 ML BOTTLE LEFTEYE SCH (09:07)
[2018-03-14] MEDS: MELOXICAM 7.5 MG TABLET PO SCH (09:07)
[2018-03-14] MEDS: ASPIRIN EC 325 MG TABLET.DR PO SCH (09:07)
[2018-03-14] MEDS: GABAPENTIN 100 MG CAPSULE PO SCH (09:07)
[2018-03-14] MEDS: HYDROCORTISONE 1% CREAM 30 GM TUBE TP SCH ×2 (09:08→12:19)
[2018-03-14] MEDS: INSULIN REGULAR, HUMAN 300 UNIT/3 ML VIAL SQ PRN (11:22)
--- NOTE | 2018-03-14 12:11 | NUR ---
Patient complaint of anxiety and . vitals signs: BP-165/63 P 90 SPO2 99% . lorazepam 0.5mg PRN given and clonidine PRN given with good effect. For discharge at 4pm. will continue monitor
[2018-03-14 12:24] VITALS: BP 165/63
--- NOTE | 2018-03-14 16:10 | NUR ---
Patient discharge to home at 410pm via private car with son in stable condition.
== END 2018-03-14 16:10 | disposition home health service (06) | DRG 560 ==
PROVIDERS: ADMIT Physical Medicine & Rehabilitation Pain Medicine; ATTEND Physical Medicine & Rehabilitation Pain Medicine
DX: Z47.1 Aftercare following joint replacement surgery (principal); E87.1 Hypo-osmolality and hyponatremia; Z96.651 Presence of right artificial knee joint; E11.9 Type 2 diabetes mellitus without complications; E66.9 Obesity, unspecified; Z68.30 Body mass index [BMI] 30.0-30.9, adult; I10 Essential (primary) hypertension; R26.9 Unspecified abnormalities of gait and mobility; D64.9 Anemia, unspecified; M19.90 Unspecified osteoarthritis, unspecified site; R60.0 Localized edema; R21 Rash and other nonspecific skin eruption; Z79.4 Long term (current) use of insulin; Z88.1 Allergy status to other antibiotic agents; Z88.2 Allergy status to sulfonamides; R79.89 Other specified abnormal findings of blood chemistry
CPT/HCPCS: 36415; 71045; 82306; 83550; 83735; 84100; 84443; 85025; 92526; 92610; 93005; 97110; 97112; 97116; 97530; 97535; J1815; J2650; J7042; Q0162